=== PATIENT | female | born 2000 | race Caucasian/White ===

== ENCOUNTER → 2020-01-25 | Outpatient (CLI) | payer OTHER ==
--- NOTE | 2020-01-25 13:02 | RAD ---
Examination: Ultrasound abdomen complete HISTORY: History of right upper quadrant abdominal pain COMPARISON: None available FINDINGS: The pancreas, aorta, IVC are not well-visualized due to bowel gas. The echogenicity of the liver grossly appears unremarkable. Echogenicities identified within the gallbladder likely gallstones. The common bile duct measures 3.6 mm in diameter. The right kidney measures 10.9 x 5.2 x 4.8 cm. The left kidney measures 11.3 x 5.6 x 6.1 cm. The spleen measures 11 cm in length. IMPRESSION: 1. Cholelithiasis. Electronically signed by: Clifton Davenport MD (01/25/2020 12:59 PM) [id number]
== END | disposition home or self-care (01) ==
LOC: US 10:43
PROVIDERS: ATTEND Obstetrics & Gynecology
DX: K80.20 Calculus of gallbladder without cholecystitis without obstruction (principal); R10.84 Generalized abdominal pain
CPT/HCPCS: 76700